=== PATIENT | male | born 1960 | race Caucasian/White ===

== ENCOUNTER 2021-09-27 11:37 | Day surgery (SDC) | payer MEDICARE ==
[2021-09-27] MEDS ORDERED: BUPIVACAINE 0.5% VIAL IJ ONE (11:38)
[2021-09-27] MEDS ORDERED: Depo-Medrol 40 MG/ML IM ONE (11:38)
[2021-09-27] MEDS ORDERED: Lactated Ringers 1,000 ML IV ONE (13:38)
[2021-09-27] MEDS ORDERED: DIPRIVAN 200 MG/20 ML IV ONE (14:11)
--- NOTE | 2021-09-27 16:19 | XRAY ---
Indication: Left knee injection. Intraoperative fluoroscopy provided for 13 seconds. Single digital spot image submitted for interpretation demonstrates needle tip projecting over the left femur intercondylar notch. Small amount of contrast injected for needle tip placement. Correlate with intraoperative findings/report.
--- NOTE | 2021-09-27 16:19 | XRAY ---
Indication: Left hip injection. Intraoperative fluoroscopy provided for 20 seconds. Single digital spot image submitted for interpretation demonstrates needle tip projecting just lateral to the left femur neck. Small amount of contrast injected for needle tip placement. Correlate with intraoperative findings/report.
--- NOTE | 2021-09-27 16:28 | XRAY ---
20 seconds of fluoroscopy was used in surgery for a left intra-articular hip injection.
--- NOTE | 2021-09-27 16:28 | XRAY ---
13 seconds of fluoroscopy was used in surgery for a left intra-articular knee injection.
== END 2021-09-27 14:40 | disposition home or self-care (01) ==
LOC: SDC-PAIN 11:37
PROVIDERS: ATTEND Psychiatry & Neurology Pain Medicine
DX: M16.12 Unilateral primary osteoarthritis, left hip (principal); M17.12 Unilateral primary osteoarthritis, left knee; I10 Essential (primary) hypertension; Z79.899 Other long term (current) drug therapy
CPT/HCPCS: 20610; 73501; 73560; 77002; J1030; J2704; Q9966